=== PATIENT | female | born 1950 | race Caucasian/White ===

== ENCOUNTER 2018-12-27 01:43 | Outpatient (CLI) | payer MEDICARE, MEDICAID ==
[2018-12-27 16:13] LABS: Hemoglobin 13.1 g/dL (12.0-16.0); Mean Corpuscular HGB CONC 30.9 g/dL (32.0-36.0); Mean Corpuscular Hemoglobin 25.7 pg (27.0-31.0); Mean Corpuscular Volume 83.2 fL (78.0-98.0); Mean Platelet Volume 7.3 fL (7.4-10.4); Platelet Count 304 thou/uL (130-400); RBC Distribution Width 14.1 % (11.5-14.5); White Blood Cell (WBC) Count 8.1 thou/uL (4.8-10.8)
[2018-12-27 16:36] LABS: Anion Gap 12 mmol/L (10-20); BUN (Urea Nitrogen) 18 mg/dL (9.8-20.1); Calc. Creatinine Clearance 0 mL/min (70-130); Calcium 9.5 mg/dL (7.8-10.44); Carbon Dioxide 26 mmol/L (23-31); Chloride 107 mmol/L (98-107); Estimated GFR-MDRD 61; Glucose 95 mg/dL (80-115); Potassium 4.2 mmol/L (3.5-5.1); Sodium 141 mmol/L (136-145)
== END 2018-12-27 01:44 | disposition home or self-care (01) ==
LOC: LABBT 01:43
PROVIDERS: ATTEND Neurological Surgery
DX: Z01.818 Encounter for other preprocedural examination (principal); M48.061 Spinal stenosis, lumbar region without neurogenic claudication; M43.16 Spondylolisthesis, lumbar region
CPT/HCPCS: 80048; 85027; 93005; 93010

== ENCOUNTER 2018-12-27 16:00 | Inpatient (IN) | payer MEDICARE, MEDICAID ==
[2018-12-27 16:27] VITALS: BMI 32.0
[2018-12-28] MEDS ORDERED: Fentanyl 100 MCG/2 ML VIAL ONE ×3 (09:51→12:55)
[2018-12-28] MEDS ORDERED: Scopolamine 1.5 mg/72 hour Patch ONE (10:11)
[2018-12-28] MEDS ORDERED: Midazolam HCl 2 mg/2 ml Vial ONE (10:11)
[2018-12-28] MEDS ORDERED: Sodium Chloride 0.9% 10 ML ONE (10:26)
[2018-12-28] MEDS ORDERED: Ondansetron HCl/PF 4 MG/2 ML Vial IVP PRN (12:16)
[2018-12-28] MEDS ORDERED: Promethazine HCl 25 MG/ML VIAL SLOW IVP PRN (12:16)
[2018-12-28] MEDS ORDERED: Meperidine HCl/PF 25 MG/ML VIAL SLOW IVP PRN (12:16)
[2018-12-28] MEDS ORDERED: Promethazine HCl 25 MG/ML VIAL IM PRN ×2 (12:16→12:37)
[2018-12-28] MEDS ORDERED: traMADol HCl 50 MG TAB PO PRN (12:37)
[2018-12-28] MEDS ORDERED: diphenhydrAMINE 50 MG/ML VIAL IVP PRN (12:37)
[2018-12-28] MEDS ORDERED: Promethazine 25 MG TAB PO PRN (12:37)
[2018-12-28] MEDS ORDERED: Morphine 4 MG/ML VIAL SLOW IVP PRN ×2 (12:37→12:40)
[2018-12-28] MEDS ORDERED: diphenhydrAMINE 25 MG CAP PO PRN (12:37)
[2018-12-28] MEDS ORDERED: Bisacodyl 10 MG SUPP PR PRN (12:37)
[2018-12-28] MEDS ORDERED: Milk Of Magnesia 30 ML UDCUP PO PRN (12:37)
[2018-12-28] MEDS ORDERED: Prochlorperazine 10 MG/2 ML VIAL IM PRN (12:37)
[2018-12-28] MEDS ORDERED: Mag-Al 1200 mg/1200 mg/30 ML UDCUP PO PRN (12:37)
[2018-12-28] MEDS ORDERED: Promethazine HCl 12.5 MG SUPP PR PRN (12:37)
[2018-12-28] MEDS ORDERED: Ondansetron PF 4 MG/2 ML Vial IVP PRN (12:41)
--- NOTE | 2018-12-28 14:21 | OP ---
DATE OF PROCEDURE: 12/28/2018 MEDICAL RECEPTION: Chidi. PROCEDURES: 1. L4-L5 laminectomy and posterolateral arthrodesis. 2. Pedicle screw instrumentation, L4-L5. 3. Demineralized bone matrix. 4. Local morselized autograft. DESCRIPTION OF PROCEDURE: The patient was brought to the operating room and intubated. She was rolled in a prone position on gel-filled chest rolls. An incision was made, exposing L4 and L5 and the level was confirmed by x-ray. We performed complete L5 and inferior L4 laminectomies, completely decompressing L4-L5 interspace. We next placed pedicle screws on the right at L4-L5 and the position was confirmed by lateral x-ray. Osmani was secured between the screws, connected by nuts, which were final tightened. The wound was then extensively irrigated. Maximum hemostasis was secured. Combination of demineralized bone matrix and local morselized autograft was laid over the posterolateral surfaces for the purpose of arthrodesis. Vancomycin powder was applied and the wound was then closed in anatomic layers. Job ID: [id number]
[2018-12-28] MEDS: tiZANidine HCl 4 MG TAB PO PRN ×2 (14:29→20:29)
[2018-12-28] MEDS: Sodium Chloride 0.9% 1,000 ML IV SCH ×2 (14:44→23:04)
[2018-12-28] MEDS ORDERED: Glycopyrrolate 0.2 MG/ML 5 ML SYRINGE ONE (15:41)
[2018-12-28] MEDS ORDERED: diphenhydrAMINE 50 MG/ML VIAL ONE (15:41)
[2018-12-28] MEDS ORDERED: PROPOFOL 200 MG/20 ML VIAL ONE (15:41)
[2018-12-28] MEDS ORDERED: ePHEDrine 50 MG/ML VIAL ONE (15:41)
[2018-12-28] MEDS ORDERED: PHENYLEPHRINE-NS 100 MCG/ML 10 ML SYRINGE ONE (15:41)
[2018-12-28] MEDS ORDERED: Rocuronium Bromide 10 MG/ML (10ML VIAL) ONE (15:41)
[2018-12-28] MEDS ORDERED: Dexamethasone 20 MG/5 ML VIAL ONE (15:41)
[2018-12-28] MEDS ORDERED: Ondansetron PF 4 MG/2 ML Vial ONE (15:41)
[2018-12-28] MEDS ORDERED: Lidocaine 1% PF 5 ML VIAL ONE (15:41)
[2018-12-28] MEDS: oxyCODONE/Acetaminophen 5 mg/325 mg Tablet PO PRN (18:06)
[2018-12-28] MEDS: CEFAZOLIN 2 GM in Premix Bag 1 BAG IVPB SCH (18:08)
[2018-12-28] MEDS: DULoxetine 60 MG CAP PO SCH (20:29)
[2018-12-28] MEDS ORDERED: Pravastatin Sodium 40 MG TAB PO SCH (21:00)
[2018-12-28] MEDS ORDERED: MOEXIPRIL 15 MG PO SCH (21:00)
[2018-12-28] MEDS: traMADol HCl 50 MG TAB PO PRN (23:04)
[2018-12-29] MEDS: oxyCODONE/Acetaminophen 5 mg/325 mg Tablet PO PRN ×4 (00:33→11:19)
[2018-12-29] MEDS: CEFAZOLIN 2 GM in Premix Bag 1 BAG IVPB SCH (03:48)
[2018-12-29 03:56] VITALS: TEMP 98.5
[2018-12-29] MEDS: traMADol HCl 50 MG TAB PO PRN ×2 (05:04→11:18)
[2018-12-29] MEDS ORDERED: Levothyroxine 150 MCG TAB PO SCH (06:00)
[2018-12-29 08:02] VITALS: BP 109/74
[2018-12-29] MEDS ORDERED: Bisoprolol Fumarate/HCTZ 5 mg/6.25 mg Tablet PO SCH (09:00)
[2018-12-29] MEDS ORDERED: Fenofibrate Nanocrystallized 145 MG TAB PO SCH (09:00)
[2018-12-29] MEDS ORDERED: Prevnar 13-Val Conj/PF 0.5 ML SYRINGE IM ONE (09:00)
[2018-12-29] MEDS: DULoxetine 60 MG CAP PO SCH (09:44)
[2018-12-29] MEDS: tiZANidine HCl 4 MG TAB PO PRN (11:17)
== END 2018-12-29 12:17 | disposition home or self-care (01) | DRG 460 ==
LOC: SURG A 12-28 09:00 → SJJU 12-28 13:25
PROVIDERS: ADMIT Neurological Surgery; ATTEND Neurological Surgery
PROC: 0SG0071 Fusion of Lumbar Vertebral Joint with Autologous Tissue Substitute, Posterior Approach, Posterior Column, Open Approach (ICD-10-PCS; principal; 2018-12-28)
DX: M43.16 Spondylolisthesis, lumbar region (principal)
CPT/HCPCS: 76000; 80048; 85027; 93005; 93010; C1713; C1768; J0780; J1100; J1200; J2001; J2250; J2270; J2405; J2704; J3010; J3370; J3490

== ENCOUNTER 2019-01-13 10:34 | Outpatient (CLI) | payer MEDICARE, MEDICAID ==
--- NOTE | 2019-01-13 12:00 | RAD ---
LUMBAR SPINE 2 VIEWS: INDICATION: Back pain. Degenerative lumbar stenosis. Followup back surgery. FINDINGS: There are pedicle screws on the right at L4-5. There is mild anterolisthesis at L4-5 and a slight an terolisthesis at L5-S1. Disk spaces are preserved. Mild degenerative spurring. IMPRESSION: Degenerative and postoperative changes of the lumbar spine noted as described. POS: [place]
== END 2019-01-13 10:35 | disposition home or self-care (01) ==
LOC: TBSIIMAG 10:34
PROVIDERS: ATTEND Neurological Surgery
DX: M48.061 Spinal stenosis, lumbar region without neurogenic claudication (principal); M43.16 Spondylolisthesis, lumbar region; M47.816 Spondylosis without myelopathy or radiculopathy, lumbar region; Z98.890 Other specified postprocedural states
CPT/HCPCS: 72100